=== PATIENT | male | born 1945 | race Two or more races ===

== ENCOUNTER 2021-06-16 22:51 | Inpatient (IN) | payer OTHER, BC ==
[~2021-06-16] VITALS: Ht 167.6 cm; Wt 59.0 kg
[2021-06-16] MEDS ORDERED: LEVOTHYROXINE25 MCG (23:12)
[2021-06-16] MEDS ORDERED: XARELTO10 MG (23:12)
[2021-06-16] MEDS ORDERED: MAGNESIUM200 MG (23:12)
[2021-06-16] MEDS ORDERED: AMIODARONE HCL100 MG (23:12)
[2021-06-16] MEDS ORDERED: TOPROL XL25 M1 (23:12)
[2021-06-16] MEDS ORDERED: FUSION CAPSULE1 EACH (23:13)
[2021-06-16] MEDS ORDERED: JANUMET 50-1,01 EACH (23:13)
== END 2021-06-22 14:22 | disposition home or self-care (01) | DRG 481 ==
LOC: ER 22:51 → SURH 06-17 11:18
PROVIDERS: ADMIT Orthopaedic Surgery; ATTEND Orthopaedic Surgery
PROC: 4A12X4Z Monitoring of Cardiac Electrical Activity, External Approach (ICD-10-PCS; 2021-06-17)
PROC: 30233N1 Transfusion of Nonautologous Red Blood Cells into Peripheral Vein, Percutaneous Approach (ICD-10-PCS; 2021-06-19)
PROC: 0QS734Z Reposition Left Upper Femur with Internal Fixation Device, Percutaneous Approach (ICD-10-PCS; principal; 2021-06-19 19:00)
DX: S72.142A Displaced intertrochanteric fracture of left femur, initial encounter for closed fracture (principal); I69.354 Hemiplegia and hemiparesis following cerebral infarction affecting left non-dominant side; D64.9 Anemia, unspecified; D72.828 Other elevated white blood cell count; I11.9 Hypertensive heart disease without heart failure; I48.91 Unspecified atrial fibrillation; I25.10 Atherosclerotic heart disease of native coronary artery without angina pectoris; E11.9 Type 2 diabetes mellitus without complications; E03.8 Other specified hypothyroidism; K52.89 Other specified noninfective gastroenteritis and colitis; Z95.0 Presence of cardiac pacemaker

== ENCOUNTER 2021-07-05 00:39 | Inpatient (IN) | payer OTHER, BC ==
[~2021-07-05] VITALS: Ht 170.2 cm; Wt 59.0 kg
[~2021-07-05 00:39] MED LIST: AMIODARONE HCL100 MG; FUSION CAPSULE1 EACH; JANUMET 50-1,01 EACH; LEVOTHYROXINE25 MCG; MAGNESIUM200 MG; TOPROL XL25 M1; XARELTO10 MG
[2021-07-05] MEDS ORDERED: ATORVASTATIN CA10 MG (01:43)
--- NOTE | 2021-07-05 01:44 | NUR ---
PTE ALERTA Y ORIENTADO X 3 ESFERAS RECIBIDO EN AMBULANCIA EN COMPANIA DE FAMILIAR Y PARAMEDICOS QUIENES REFIEREN PTE FUE ENCONTRADO INCOCIENTE Y PALIDO CON UN DXT EN 30 MG/DL,LE ADMINISTRARON DW5% 250ML,CANALIZACION PATENTE Y KRISHNA DE EDEMA EN MANO LT.SE OC S/V Y DXT 129 MG/DL.SE PRESENTA MICHELLE A DR CANCHOLA Y SE UBICA EN NISHANT CON BARANDAS ELEVADAS.
--- NOTE | 2021-07-05 02:18 | NUR ---
PACIENTE ALERTA Y ORIENTADO X3. IV FLUID PATENTE Y KRISHNA DE EDEMA Y ERITEMA REALIZADO POR PARAMEDICOS. MIS. RASHEL REALIZA MUESTRAS DE LABORATORIO BAJO MEDIDAS ASEPTICAS. SE MANTIENE BAJO OBSERVACION POR CAMBIOS SIGNIFICATIVOS.
--- NOTE | 2021-07-05 03:11 | NUR ---
SE CATETERIZA PTE BAJO MEDIDAS PARA GUIDO DE MUESTRA DE UA PENDIENTE.
--- NOTE | 2021-07-05 07:48 | NUR ---
PT REEVALUADO POR DR SUSHANT LANG ORDENA NUEVO TX MEDICO. SE EDUCA A PT SOBRE EL MISMO Y REFIERE ENTENDER. RN BOLES EJECUTA ORDENES BAJO MEDIDAS ACEPTICAS. SE GUIDO CULTIVO DE PABLO Y SE ADMINISTRAN MED.
[2021-07-05] MEDS ORDERED: FOLIC ACID1 MG (13:19)
[2021-07-05] MEDS ORDERED: LISINOPRIL20 MG (13:19)
[2021-07-05] MEDS ORDERED: GLIPIZIDE ER10 MG (13:19)
== END 2021-07-14 12:50 | DRG 689 ==
LOC: ER 00:39 → SEC-K 09:21 → MEDJ 13:19
PROVIDERS: ADMIT Internal Medicine; ATTEND Internal Medicine
DX: N39.0 Urinary tract infection, site not specified (principal); S72.142A Displaced intertrochanteric fracture of left femur, initial encounter for closed fracture; F10.288 Alcohol dependence with other alcohol-induced disorder; K52.89 Other specified noninfective gastroenteritis and colitis; T80.1XXA Vascular complications following infusion, transfusion and therapeutic injection, initial encounter; I80.9 Phlebitis and thrombophlebitis of unspecified site; E11.649 Type 2 diabetes mellitus with hypoglycemia without coma; D63.8 Anemia in other chronic diseases classified elsewhere; D72.821 Monocytosis (symptomatic); I11.0 Hypertensive heart disease with heart failure; I50.9 Heart failure, unspecified; E03.8 Other specified hypothyroidism; E78.5 Hyperlipidemia, unspecified; F03.90 Unspecified dementia, unspecified severity, without behavioral disturbance, psychotic disturbance, mood disturbance, and anxiety; Z79.84 Long term (current) use of oral hypoglycemic drugs; Z95.0 Presence of cardiac pacemaker

== ENCOUNTER 2021-08-17 14:53 | Outpatient (CLI) | payer OTHER, BC ==
[~2021-08-17 14:53] MED LIST changes: +ATORVASTATIN CA10 MG; +FOLIC ACID1 MG; +GLIPIZIDE ER10 MG; +LISINOPRIL20 MG
== END 2021-08-17 15:17 | disposition home or self-care (01) ==
LOC: RAD 14:53
PROVIDERS: ATTEND Orthopaedic Surgery
DX: S70.02XA Contusion of left hip, initial encounter (principal)